=== PATIENT | male | born 1950 | race Caucasian/White ===

== ENCOUNTER 2016-07-19 13:16 | Inpatient (IN) | payer OTHER ==
[~2016-07-19] VITALS: Ht 180.3 cm; Wt 83.6 kg
[~2016-07-19 13:16] MED LIST: ASPIR-LOW81 MG PO; ATORVASTATIN CA20 MG PO; CALCITRIOL0.25 MCG PO; CENTRUM SILVER1 EAC3 PO; CIPRO500 MG PO; COZAAR100 MG PO; FLAGYL500 MG PO; FLORASTOR250 MG PO; LOPRESSOR50 MG PO; LOSARTAN POTAS100 MG PO; LOW DOSE ASPIRI81 M1 PO; METRONIDAZOLE500 MG PO; NIFEDICAL XL30 MG PO; PREDNISONE5 MG PO; PRILOSEC40 MG PO; PROTONIX40 MG PO; RAPAMUNE1 MG PO; RESTORIL30 MG PO; TEMAZEPAM15 MG PO; ZESTRIL10 MG PO; ZOFRAN4 MG PO
[2016-07-19 14:40] LABS: EOSINOPHIL (%) 0.8 % (0-5); EOSINOPHIL COUNT 0.1 K/uL (0-0.3); HEMATOCRIT 48.9 % (38.0-50.0); IMMATURE GRANULOCYTE (%) 0.5 % (0.0-0.7); INSTRUMENT ABS NEUTROPHIL CT 6.6 K/uL; LYMPHOCYTE COUNT 0.6 K/uL (1.0-2.8); MCH 26.8 PG (29.0-34.0); MCHC 31.9 G/DL (30.0-36.0); MEAN PLAT.VOLUME 9.2 uM^3 (9.0-12.4); MONOCYTE (%) 10.9 % (3-12); MONOCYTE COUNT 0.9 K/uL (0-0.8); NEUTROPHIL (%) 80.7 % (45-76); NEUTROPHIL COUNT 6.6 K/uL (1.8-6.4); PLATELET COUNT 161 K/uL (156-360); RBC DIS.WIDTH-CV 15.3 % (11.8-14.6); RBC DIS.WIDTH-SD 46.3 % (39-53); RED BLOOD COUNT 5.82 M/uL (4.00-5.50); WHITE BLOOD COUNT 8.2 K/uL (4.1-10.2)
[2016-07-19 14:48] LABS: CHLORIDE 106 mEq/L (99-109); POTASSIUM 4.3 mEq/L (3.7-5.4); SODIUM 139 mEq/L (136-147)
[2016-07-19 14:50] LABS: GLUCOSE 88 mg/dL (70-99); INTER. NORMALIZED RATIO 3.5; PTT 46.8 (25-32)
[2016-07-19 14:51] LABS: ANION GAP 11 MEQ/L (2-14)
[2016-07-19 14:54] LABS: GFR ESTIMATE (CALCULATED) 21 mL/min/
[2016-07-19 14:55] LABS: UREA NITROGEN (BUN) 38 mg/dL (9-23)
[2016-07-19 15:12] LABS: PROTHROMBIN TIME 36.7 (9.2-11.2)
[2016-07-19] MEDS ORDERED: PROCARDIA XL30 MG PO (15:54)
[2016-07-19] MEDS ORDERED: LOSARTAN POTASS50 MG PO (15:54)
[2016-07-19] MEDS ORDERED: OMEPRAZOLE40 M1 PO (15:55)
[2016-07-19] MEDS ORDERED: ROXICODONE5 MG PO (15:56)
[2016-07-19] MEDS ORDERED: WARFARIN SODIUM1 MG PO ×2 (15:56)
[2016-07-20 01:26] VITALS: BP 113/64
[2016-07-20 06:45] VITALS: BP 129/65
[2016-07-20 07:20] LABS: INTER. NORMALIZED RATIO 3.9; PROTHROMBIN TIME 41.2 (9.2-11.2)
[2016-07-20 07:33] LABS: ANION GAP 8 MEQ/L (2-14); CHLORIDE 106 MEQ/L (99-109); GFR ESTIMATE (CALCULATED) 22 mL/min/; SAMPLE HEMOLYSIS CHECK 1; SAMPLE ICTERIC CHECK 0; SAMPLE LIPEMIA CHECK 0; SODIUM 137 MEQ/L (136-147); UREA NITROGEN (BUN) 36 mg/dL (9-23)
[2016-07-20 07:34] LABS: GLUCOSE 120 mg/dL (70-99); POTASSIUM 4.8 MEQ/L (3.7-5.4)
[2016-07-20 07:52] LABS: HEMATOCRIT 45.2 % (38.0-50.0); MCH 26.2 PG (29.0-34.0); MCHC 30.8 G/DL (30.0-36.0); MCV 85.3 FL (86-99); RBC DIS.WIDTH-CV 15.4 % (11.8-14.6); RBC DIS.WIDTH-SD 47.8 % (39-53); WHITE BLOOD COUNT 5.9 K/uL (4.1-10.2)
[2016-07-20 09:47] LABS: EOSINOPHIL (%) 0.5 % (0-5); IMMATURE GRANULOCYTE (%) 0.5 % (0.0-0.7); INSTRUMENT ABS NEUTROPHIL CT 5.1 K/uL; LYMPHOCYTE COUNT 0.3 K/uL (1.0-2.8); MEAN PLAT.VOLUME 9.9 uM^3 (9.0-12.4); MONOCYTE COUNT 0.5 K/uL (0-0.8); NEUTROPHIL (%) 85.9 % (45-76); NEUTROPHIL COUNT 5.1 K/uL (1.8-6.4); PLAT.SUFFICIENCY DECREASED
[2016-07-20 09:54] LABS: PLATELET COUNT 110 K/uL (156-360)
[2016-07-20 12:11] VITALS: BP 116/70
[2016-07-20 16:39] VITALS: BP 141/73
[2016-07-20 21:11] VITALS: BP 135/79
[2016-07-20 23:51] VITALS: BP 134/76
[2016-07-21 04:33] VITALS: BP 123/72
[2016-07-21 07:05] VITALS: BP 123/73
[2016-07-21 07:25] LABS: INTER. NORMALIZED RATIO 2.9; PROTHROMBIN TIME 30.8 (9.2-11.2)
[2016-07-21 11:45] VITALS: BP 127/79
[2016-07-21 15:00] VITALS: BP 129/75
[2016-07-21 23:30] VITALS: BP 145/79
[2016-07-22 07:30] LABS: EOSINOPHIL (%) 0.8 % (0-5); HEMATOCRIT 46.3 % (38.0-50.0); IMMATURE GRANULOCYTE (%) 0.2 % (0.0-0.7); INSTRUMENT ABS NEUTROPHIL CT 4.3 K/uL; LYMPHOCYTE COUNT 0.4 K/uL (1.0-2.8); MCH 26.5 PG (29.0-34.0); MCHC 31.1 G/DL (30.0-36.0); MCV 85.3 FL (86-99); MEAN PLAT.VOLUME 9.2 uM^3 (9.0-12.4); MONOCYTE (%) 9.1 % (3-12); MONOCYTE COUNT 0.5 K/uL (0-0.8); NEUTROPHIL COUNT 4.3 K/uL (1.8-6.4); PLATELET COUNT 130 K/uL (156-360); RBC DIS.WIDTH-CV 14.9 % (11.8-14.6); RED BLOOD COUNT 5.43 M/uL (4.00-5.50); WHITE BLOOD COUNT 5.2 K/uL (4.1-10.2)
[2016-07-22 07:33] LABS: INTER. NORMALIZED RATIO 2.7; PROTHROMBIN TIME 28.6 (9.2-11.2)
[2016-07-22 07:38] LABS: ANION GAP 9 MEQ/L (2-14); CHLORIDE 108 MEQ/L (99-109); GFR ESTIMATE (CALCULATED) 28 mL/min/; POTASSIUM 4.6 MEQ/L (3.7-5.4); SAMPLE HEMOLYSIS CHECK 0; SAMPLE ICTERIC CHECK 0; SAMPLE LIPEMIA CHECK 0; SODIUM 141 MEQ/L (136-147); UREA NITROGEN (BUN) 32 mg/dL (9-23); URIC ACID 6.1 mg/dL (3.1-9.2)
[2016-07-22 07:39] LABS: GLUCOSE 87 mg/dL (70-99)
[2016-07-22 08:00] VITALS: BP 122/74
[2016-07-22 16:24] VITALS: BP 140/84
[2016-07-22] MEDS ORDERED: COUMADIN2 MG PO (17:11)
[2016-07-22] MEDS ORDERED: COUMADIN3 MG PO (17:13)
[2016-07-22] MEDS ORDERED: Colchicine,Colcrys PO (17:14)
[2016-07-22] MEDS ORDERED: ALLOPURINOL100 MG PO (17:14)
[2016-07-22] MEDS ORDERED: KEFLEX500 MG PO (17:14)
== END 2016-07-22 18:14 | disposition home or self-care (01) | DRG 554 ==
LOC: EME 13:16 → RME 13:16 → EDOF 18:21 → 2EAST 18:21
PROVIDERS: Family Medicine; Physician Assistant
DX: M10.9 Gout, unspecified (principal); L03.116 Cellulitis of left lower limb; R78.81 Bacteremia; E78.5 Hyperlipidemia, unspecified; I12.9 Hypertensive chronic kidney disease with stage 1 through stage 4 chronic kidney disease, or unspecified chronic kidney disease; Z87.891 Personal history of nicotine dependence; N18.3 Chronic kidney disease, stage 3 (moderate)
CPT/HCPCS: 73630; 80048; 84550; 85025; 85610; 85730; 87040; 87077; 87186; 87801; 99281; 99285; J0696; J7050; J7512; J7520